=== PATIENT | female | born 1985 | race Caucasian/White ===

== ENCOUNTER → 2017-03-02 | Outpatient (CLI) | payer BC ==
--- NOTE | 2017-03-02 16:27 | REP ---
Scoliosis series: Two views: History: Scapular elevation. Comparison radiographs are from 03/15/2016. Findings: Upright AP views of the thoracolumbar spine show no structural vertebral anomaly. There is a gentle dextroconvex curve in the lower thoracic spine measured at 6 degrees from T10 through L1. There is a levoconvex curve in the lumbar spine which measures 5 degrees from L1-L4. Curves measured at less than 10 degrees and felt to be within normal limits. Impression: No evidence of clinically significant visible radiographically. Signed by Panda Bowens MD 03/03/2017 01:08 P
--- NOTE | 2017-03-02 16:58 | REP ---
BILATERAL SCAPULA SERIES: 03/02/2017: Clinical history: Scapular elevation. The patient states left higher than right. Findings: Two views are provided. On the frontal views, the scapular tip extends to the 8th posterior intercostal space on both sides. No winging of the scapula. The coracoid, acromion, clavicle, ribs, the remainder of the scapula as well as humeral head are without fracture, destructive lesion. Scapular Y view shows no subluxation or dislocation of the humeral heads from the glenoid. Coracoid and acromion intact. Posterior rib articulations intact. Impression: 1. I cannot confirm abnormal scapular elevation or winging of the scapula. The inferior margin of the scapula extends the posterior 8th intercostal space on both sides. No subluxation or dislocation. Signed by Rufus Hand MD 03/03/2017 03:05 P
== END ==
LOC: M LRY 15:24
PROVIDERS: ATTEND Family Medicine
DX: Q74.0 Other congenital malformations of upper limb(s), including shoulder girdle (principal)